=== PATIENT | male | born 1955 | race Caucasian/White ===

== ENCOUNTER 2016-09-17 23:50 | Inpatient (IN) | payer MEDICARE ==
[~2016-09-17] VITALS: Ht 167.6 cm; Wt 77.7 kg
[2016-09-17 23:51] VITALS: BP 178/93
--- OUTSIDE RECORDS SUMMARY | 2016-09-17 23:56 | External Medical Summary Rpt ---
Author Author [employer] Organization [employer] Address Unknown Phone Unavailable Purpose Continuity of Care Document - through 2016
--- OUTSIDE RECORDS SUMMARY | 2016-09-17 23:56 | External Medical Summary Rpt ---
Author Author , XENIA MICHAELS Address Unknown Phone [email or web address] Immunization Name Date Rout CVX Reac Dose Comm Prov Is Faci e tion ent ider Refu lity Give sed n Infl 09-2 Intr 150 0.5 Hist KHAF No RITE uenz 6-20 amus mL oric SOFIA AID0 a 16 cula al AYMA 3938 Quad r Info N Inj rmat ion - Sour ce Unsp ecif ied
--- OUTSIDE RECORDS SUMMARY | 2016-09-17 23:56 | External Medical Summary Rpt ---
Author Author , XENIA MICHAELS Address Unknown Phone [email or web address] Immunization Name Date Rout CVX Reac Dose Comm Prov Is Faci e tion ent ider Refu lity Give sed n Infl 09-2 Intr 150 0.5 Hist KHAF No RITE uenz 6-20 amus mL oric SOFIA AID0 a 16 cula al AYMA 3938 Quad r Info N Inj rmat ion - Sour ce Unsp ecif ied
--- OUTSIDE RECORDS SUMMARY | 2016-09-17 23:56 | External Medical Summary Rpt ---
Author Author XENIA Address Unknown Phone [email or web address] Purpose Continuity of Care Document - through 2016
--- OUTSIDE RECORDS SUMMARY | 2016-09-17 23:56 | External Medical Summary Rpt ---
Author Author XENIA Address Unknown Phone [email or web address] Purpose Continuity of Care Document - through 2016
[2016-09-18] VITALS (28 sets, daily range): BP systolic 121–162; BP diastolic 61–88
--- NOTE | 2016-09-18 00:12 | Emergency Room Report ---
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 N Clinical Suspician of Infection? N Mental Status: 1 - Regular (Normal Baseline) Sepsis Risk:Low Sepsis Risk Have you (or family members/close friends) recently traveled outside the [place]? N If Yes, where/when: Have you had exposure to infectious disease within the past month? N TB? Other? Specify: Source patient, RN notes reviewed, family, old records Exam Limitations no limitations Comment acute chest pain with rad to jaw with strong fh and htn and tob use -pt not relieved at home Cardiac Chest Pain Chest pain indicative of cardiac Yes Timing/Duration 1-3 hours, constant Severity/Quality moderate, pressure Location central Chest Pain Radiation jaw(s) Activities at Onset light activity Nitro Today/Relief no nitro taken today Aspirin Treatment Today 325 mg x 1, provided at home Beta jon treatment today no beta jon taken Cardiac risk factors Uncontrolled HTN, + family history Prior Workup/Intervention no prior cardiac workup Timing/Duration this evening Severity moderate History Medical History General CAD? No Angina: Yes NM: No Hypertension? Yes Hyperlipidemia? Yes CHF? No DVT? No PE? No COPD? No Asthma? No Anemia? No GERD? No Gastric ulcers? No GI Bleed? No Hernia? No Thyroid Problems? No Hypothyroidism? No CVA? No Seizures? No Diabetes? No Renal Insuffiency? No End Stage Renal Disease? No UTI? No Stones? No BPH? No GB Disease: No Nephritic Syndrome? No Asplenia? No Hepatitis? No Sickle Cell Disease? No Arthritis? No Migraines? No Cataracts? No Glaucoma? No MRSA? No HIV? No TB? No Anxiety? No Depression? No Cancer? No Site: N More? No Immunization Hx DT/Tetanus 1-4 Years Ago Surgical Hx Previous Surgery?Y BACK SURGERIES X 2 HAND SURGERY Social History Smoking Hx Smoker: Never Smoker Tobacco: Yes Type Cigarettes Alcohol Alcohol: No Drugs none Review of Systems All Other Systems Reviewed and Negative Constitutional denies fever Eyes denies drainage ENT denies: ear pain, epistaxis, throat pain. Respiratory denies cough, denies shortness of breath, denies wheezing Cardiovascular see HPI, chest pain, denies syncope Gastrointestinal denies abdominal pain, denies diarrhea, denies vomiting Genitourinary denies: dysuria, frequency, hesitancy, hematuria. Musculoskeletal denies back pain, denies joint pain, denies joint swelling, denies neck pain Skin denies rash Psychiatric/Neurological denies headache, denies seizure Physical Exam Vital Signs Vital Signs Date Time Temp Pulse Resp B/P Pulse O2 O2 Flow FiO2 Ox Delivery Rate 09/17 2351 98.3 99 16 178/93 97 - WBC >12,000 or <4,000 or 10% bands? 2 or more SIRS Criteria Met? B/P:178/ MAP:121 Creatinine >2.0? UA output<0.5ml/kg/hr for 2 hrs? Platelet count >100,000? Lactate >2.0mmol/1? INR >1.2 or PTT > than 60 sec? Evidence of Organ Dysfunction? Provider documented clinical suspician of infection? N Sepsis Criteria Count: 1 Sepsis Risk: Low Sepsis Risk General Appearance no apparent distress Eye Exam - bilateral eye PERRL, bilateral eye EOMI Ear, Nose, Throat normal ENT inspection Neck supple Respiratory Status No: respiratory distress. Lung Sounds bilateral: lungs clear. 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 Rhythm Sinus Tachycardia EKG ST elevation Departure Departure Time of Disposition 0004 Disposition Still a Patient Clinical Impression Primary Impression: STEMI (ST elevation myocardial infarction) Qualifiers: Involved coronary artery: unspecified coronary artery Qualified Code: I21.3 - ST elevation (STEMI) myocardial infarction of unspecified site Condition STABLE Referrals Rico Garcia MD discussed with dr stein and dr garcia ED Critical Care Critical Care Yes Time spent < 30 min Vital system(s) involved: stemi I was present at bedside for Coordinating pt's care, Interpreting EKGs/Strips , Reviewing old records, Discussing pt condition, For re-examinations Comments will go to microbiology lab assistant now at 0011
--- NOTE | 2016-09-18 00:12 | Emergency Room Report ---
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 N Clinical Suspician of Infection? N Mental Status: 1 - Regular (Normal Baseline) Sepsis Risk:Low Sepsis Risk Have you (or family members/close friends) recently traveled outside the [place]? N If Yes, where/when: Have you had exposure to infectious disease within the past month? N TB? Other? Specify: Source patient, RN notes reviewed, family, old records Exam Limitations no limitations Comment acute chest pain with rad to jaw with strong fh and htn and tob use -pt not relieved at home Cardiac Chest Pain Chest pain indicative of cardiac Yes Timing/Duration 1-3 hours, constant Severity/Quality moderate, pressure Location central Chest Pain Radiation jaw(s) Activities at Onset light activity Nitro Today/Relief no nitro taken today Aspirin Treatment Today 325 mg x 1, provided at home Beta jon treatment today no beta jon taken Cardiac risk factors Uncontrolled HTN, + family history Prior Workup/Intervention no prior cardiac workup Timing/Duration this evening Severity moderate History Medical History General CAD? No Angina: Yes [place]: No Hypertension? Yes Hyperlipidemia? Yes CHF? No DVT? No PE? No COPD? No Asthma? No Anemia? No GERD? No Gastric ulcers? No GI Bleed? No Hernia? No Thyroid Problems? No Hypothyroidism? No CVA? No Seizures? No Diabetes? No Renal Insuffiency? No End Stage Renal Disease? No UTI? No Stones? No BPH? No GB Disease: No Nephritic Syndrome? No Asplenia? No Hepatitis? No Sickle Cell Disease? No Arthritis? No Migraines? No Cataracts? No Glaucoma? No MRSA? No HIV? No TB? No Anxiety? No Depression? No Cancer? No Site: N More? No Immunization Hx DT/Tetanus 1-4 Years Ago Surgical Hx Previous Surgery?Y BACK SURGERIES X 2 HAND SURGERY Social History Smoking Hx Smoker: Never Smoker Tobacco: Yes Type Cigarettes Alcohol Alcohol: No Drugs none Review of Systems All Other Systems Reviewed and Negative Constitutional denies fever Eyes denies drainage ENT denies: ear pain, epistaxis, throat pain. Respiratory denies cough, denies shortness of breath, denies wheezing Cardiovascular see HPI, chest pain, denies syncope Gastrointestinal denies abdominal pain, denies diarrhea, denies vomiting Genitourinary denies: dysuria, frequency, hesitancy, hematuria. Musculoskeletal denies back pain, denies joint pain, denies joint swelling, denies neck pain Skin denies rash Psychiatric/Neurological denies headache, denies seizure Physical Exam Vital Signs Vital Signs Date Time Temp Pulse Resp B/P Pulse O2 O2 Flow FiO2 Ox Delivery Rate 09/17 2351 98.3 99 16 178/93 97 - WBC >12,000 or <4,000 or 10% bands? 2 or more SIRS Criteria Met? B/P:178/ MAP:121 Creatinine >2.0? UA output<0.5ml/kg/hr for 2 hrs? Platelet count >100,000? Lactate >2.0mmol/1? INR >1.2 or PTT > than 60 sec? Evidence of Organ Dysfunction? Provider documented clinical suspician of infection? N Sepsis Criteria Count: 1 Sepsis Risk: Low Sepsis Risk General Appearance no apparent distress Eye Exam - bilateral eye PERRL, bilateral eye EOMI Ear, Nose, Throat normal ENT inspection Neck supple Respiratory Status No: respiratory distress. Lung Sounds bilateral: lungs clear. 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 Rhythm Sinus Tachycardia EKG ST elevation Departure Departure Time of Disposition 0004 Disposition Still a Patient Clinical Impression Primary Impression: STEMI (ST elevation myocardial infarction) Qualifiers: Involved coronary artery: unspecified coronary artery Qualified Code: I21.3 - ST elevation (STEMI) myocardial infarction of unspecified site Condition STABLE Referrals Rico Garcia MD discussed with dr stein and dr garcia ED Critical Care Critical Care Yes Time spent < 30 min Vital system(s) involved: stemi I was present at bedside for Coordinating pt's care, Interpreting EKGs/Strips , Reviewing old records, Discussing pt condition, For re-examinations Comments will go to lab rn now at 0011
--- OUTSIDE RECORDS SUMMARY | 2016-09-18 00:14 | External Medical Summary Rpt ---
Author Author , XENIA MICHAELS Address Unknown Phone [email or web address] Immunization Name Date Rout CVX Reac Dose Comm Prov Is Faci e tion ent ider Refu lity Give sed n Infl 09-2 Intr 150 0.5 Hist KHAF No RITE uenz 6-20 amus mL oric SOFIA AID0 a 16 cula al AYMA 3938 Quad r Info N Inj rmat ion - Sour ce Unsp ecif ied
--- OUTSIDE RECORDS SUMMARY | 2016-09-18 00:14 | External Medical Summary Rpt ---
Author Author , XENIA MICHAELS Address Unknown Phone [email or web address] Immunization Name Date Rout CVX Reac Dose Comm Prov Is Faci e tion ent ider Refu lity Give sed n Infl 09-2 Intr 150 0.5 Hist KHAF No RITE uenz 6-20 amus mL oric SOFIA AID0 a 16 cula al AYMA 3938 Quad r Info N Inj rmat ion - Sour ce Unsp ecif ied
--- NOTE | 2016-09-18 01:21 | RADIOLOGY REPORT PS360 ---
CARDIAC CATHETERIZATION DATE OF CATHETERIZATION:09/18/2016 12:45 AM PROCEDURES: 1. Left heart catheterization 2. Left ventriculogram 3. Selective coronary angiogram 4. Drug-eluting stent deployment to the ostial left main artery INDICATION FOR TEST: 1. Acute ST elevation myocardial infarction 2. Coronary artery disease Informed consent was obtained prior to the procedure. COMPLICATIONS: None 60-year-old gentleman presented to the emergency department with severe diaphoresis and severe chest pain. EKG revealed diffuse ST depression with ST elevation in aVR in the V1. Patient had a toxic appearance and was diaphoretic with active chest pain. Patient was immediately taken to the Enrollment Eligibility Representative and prepped for emergent angiography. Patient continued to complain of severe chest pain burning shortness of breath and episodes of near emesis. In the Enrollment Eligibility Representative he was heavily sedated due to his severe chest pain, anxiety and extremities. Angiography demonstrated critical ostial left main disease with a chronically occluded dominant right coronary artery being entirely supplied by the left coronary system. Given patient is actively having chest pain with profound ST segment depression which persisted on his EKG and was decided to percutaneously intervene. We are able to awaken patient and not for him to take 60 mg of Effient and heparin was administered into the arterial sheath. ESTIMATED BLOOD LOSS: Less than 10 ml. TECHNIQUE: One percent lidocaine used to anesthetize the right anterior aspect of the wrist. The right radial artery was accessed via the Seldinger technique. A 6 Green[place]ic sheath was placed in the right radial artery. 2.5 mg of verapamil, 800 mcg of nitroglycerin and 7000 units of heparin was administered into the arterial sheath. An [employer] left guide catheter was placed in the ostial left main artery and the blood pressure immediately dampened to 40 mm systolic. I was able to quickly inject 1 quick angiogram which demonstrated a critical ostial stenosis. The guide catheter was pulled out and placed into the ascending aorta. With the ACT greater than 400 and patient artery given 60 mg of Effient a BMW wire was placed into the circumflex artery while the guide catheter was still in the left coronary cusp. A 4 mm x 8 mm resolute [place] stent was advanced into the distal aspect of the guide catheter but still within the guide catheter. The guide catheter was then inserted into the left main artery and the stent was advanced ostially. The guide catheter was then disengaged from the left main artery and the stent was deployed in a perfect location at 20 hafsa reducing the critical stenosis to 0%. At this point I was able to reengage the left main artery with the guide catheter without any additional dampening and then perform complete diagnostic angiography. At the end of the procedure the ACT was 290 seconds with YOAV-3 flow down the LAD left main and circumflex system. The apparatus was removed the sheath was removed good hemostasis was achieved using TR banding patient transferred the postop holding area in stable condition ANGIOGRAPHIC RESULTS: 1. The left main artery has a critical ostial 80-90% stenosis. After the stenting the left main artery was normal ostially and proximally with a small distal 20% stenosis 2. The left anterior descending artery has an ostial 50% stenosis with a proximal 40% and 70% concentric stenosis followed by a long mid vessel 60-70% concentric stenosis. Distally the LAD has a 50% stenosis. This is a large vessel giving rise to multiple very large septal perforators which have a dense collateral network to the distal right coronary artery 3. The circumflex artery is probably a codominant vessel and has proximal 40-50% and diffuse mid vessel 40% stenoses 4. The right coronary artery is probably codominant vessel and severely stenosed in the proximal segment of 70% and then subtotally occluded after the RV marginal 5. The REDMOND ventriculogram reveals normal ejection fraction 65% 6. The left ventricular end-diastolic pressure 15 mmHg IMPRESSION: 1. Critical coronary artery disease as described above 2. Successful stenting of the ostial left main artery critical disease reduced to 0% with 1 drug-eluting stent 3. Persistent moderate to severe proximal mid LAD disease as described above 4. Chronically occluded probably codominant right coronary artery 5. Normal ejection fraction 6. Normal left ventricular end-diastolic pressure PLAN: 1. Effient and aspirin 2. LDL less than 55 3. Complete tobacco cessation 4. Patient requires high dose beta blockers in standard therapy for ischemic heart disease 5. Cardiac rehabilitation 6. Patient has persistent ostial proximal and mid LAD disease which would probably benefit from the BOOKER graft. I will show these films to the CT surgeon and will approach additional revascularization and a team approach while consulting with a cardiothoracic surgeon
[2016-09-18] MEDS ORDERED: ASPIRIN 81MG TA81 MG PO (02:05)
--- NOTE | 2016-09-18 07:51 | HISTORY AND PHYSICAL REPORT ---
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 In the ER EKGs indicated STEMI pattern. Taken to catheter lab. Stented successfully, transferred to step down intensive. Ivette has no complaints, no pain. Feels much better Past medical history: Family HX Family Hx Insignificant No Diabetes Yes CAD Yes Hypertension Yes Hyperlipidemia Yes Cancer No TB No Comment Patient's brother had myocardial infarction at age 56, patient's son had a myocardial infarction at age 37 Immunization HX DT/Tetanus 1-4 Years Ago Pneumonia Never Had TB Test in last year No General CAD? No Angina: Yes NM: Yes Hypertension? Yes Hyperlipidemia? Yes CHF? No DVT? No PE? No COPD? No Asthma? No Anemia? No GERD? No Gastric ulcers? No GI Bleed? No Hernia? No Thyroid Problems? No Hypothyroidism? No CVA? No Seizures? No Diabetes? No Renal Insuffiency? No UTI? No Stones? No BPH? No GB Disease: No Nephritic Syndrome? No Asplenia? No Hepatitis? No Sickle Cell Disease? No Arthritis? No Migraines? No Cataracts? No Glaucoma? No MRSA? No HIV? No TB? No Anxiety? No Depression? No Cancer? No Site: N More? No Past Surgical HX Previous Surgery?Y BACK SURGERIES X 2 HAND SURGERY STENTS Current home meds: Reported Medications ASPIRIN (Aspirin) 81 MG PO DAILY Social Hx: Smoking HX Tobacco Yes Type Cigarettes Packs/day 1 1/2 - 2 PACKS Are you/the child exposed to second-hand smoke: Yes Alcohol Alcohol: Yes How much do you drink 1-2 Drinks Per Day For how long Longer Than 5 Years When was your last drink 24-48 Hours Ago Hx of Drug Use Drug Use? No Patien't marital status is Patient's support system is excellent Review of systems: Constitutional malaise, weakness. Respiratory shortness of breath, SOB with excertion, SOB at rest. Cardiovascular see HPI Gastrointestinal/Abdominal No no symptoms reported Genitourinary No: no symptoms reported. Musculoskeletal back pain, neck pain. Neurological No: see HPI. Exam: Lab data for last 24 hours: Laboratory Tests 09/18/16 0724: Triglycerides 156, Cholesterol 176, LDL Cholesterol 109.8, VLDL Cholesterol 31.2 , HDL Cholesterol 35.0 L 09/18/16 0041: POC Activ Clotting Time 290 *H Admission vital signs: 1ST Vital Signs Result Date Time Pulse Ox 97 09/17 2350 B/P 178/93 09/17 2350 Temp 98.3 09/17 2350 Pulse 99 09/17 2350 Resp 16 09/17 2350 O2 Delivery ROOM AIR 09/18 014 Exam General appearance: normal appearance, alert, awake Eyes: normal exam, anicteric Neck: normal inspection, non-tender, no carotid bruit, no JVD Cardiovascular: normal exam Respiratory: normal exam, clear to auscultation ABD: normal exam, non-distended, normal bowel sounds Genitourinary: normal voiding & quantity Musculoskeletal: normal exam Neuro: normal exam, alert, no deficit Plan: Problem List 1. STEMI (ST elevation myocardial infarction) 2. Tobacco use disorder Plan: Catheter lab reports reviewed. We'll start beta jon cautiously. High potency statin. Continue dual antiplatelet agents. Probable referral for bypass procedure. Discussed this with patient. Nicotine patch as needed for tobacco use issues. Strongly need smoking cessation immediately. Please note one hour critical care time. at 0751
--- NOTE | 2016-09-18 09:20 | PHARMACY CLINIC NOTE ---
Patient Demographics Patient Demographics Admission date: 09/18/16 Date: 09/18/16 Time: 918 Allergies Coded Allergies: No Known Allergies (09/18/16) HEIGHT- FT: 5 IN: 6.00 K.364 VTE General Information Disclaimer The following section includes nursing documentation that has been pulled in for pharmacy review. Patient's VTE score: 1 Patient's VTE Risk: VERY LOW RISK Clinical trial participant? No VTE prophylaxis [id number] [id number] VTE prophylaxis ordered? Yes Type of prophylaxis/treatment: CHANCE at 0919
[2016-09-19] VITALS (9 sets, daily range): BP systolic 124–138; BP diastolic 64–74
[2016-09-19] MEDS ORDERED: ASPIRIN 81MG TA81 MG PO (07:23)
--- NOTE | 2016-09-19 07:23 | ACUTE CARE PROGRESS NOTE (QUA) ---
Progress Notes Subjective Date 09/19/16 Time 0721 Note Patient had a good night. Slept well. No complaints of chest pain. Heart rate regular in the 60s. Abdomen soft and nontender. Lungs are clear. No edema, good perfusion. Objective Findings Last VS-Temp:98.4 B/P:138/67 Pulse:52 Resp:18 SaO2:93 ROOM AIR Last weight lbs:171 oz:5 K.706 Method:Bed Scales Assessment/Plan Problem List 1. STEMI (ST elevation myocardial infarction) Qualifiers: Involved coronary artery: unspecified coronary artery Qualified Code: I21.3 - ST elevation (STEMI) myocardial infarction of unspecified site 2. Tobacco use disorder Patient condition Improving Plan: initiate discharge plan This inpt stay is expected to cross 2 MNs from start of care Yes Comments: Please note 30 minutes critical care time at 0722
[2016-09-19] MEDS ORDERED: LOPRESSOR 50 MG50 MG PO (07:24)
[2016-09-19] MEDS ORDERED: LIPITOR40 M1 PO (07:24)
[2016-09-19] MEDS ORDERED: EFFIENT10 M2 PO (07:24)
--- NOTE | 2016-09-19 07:27 | DISCHARGE SUMMARY STANDARD ---
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 In the ER EKGs indicated STEMI pattern. Taken to catheter lab. Stented successfully, transferred to step down intensive. Davidn has no complaints, no pain. Feels much better Hospital Course Hospital Course: Patient was administered down. Watch carefully. Beta blockers were initially very carefully in the intensive care unit setting given his anterior wall dysfunction. He tolerated this well and was not significantly bradycardic. This morning he is without any symptoms of cardiovascular dysfunction. Tolerated beta blockers well. No edema. No complaints. He will be discharged home, with short-term cardiology followup, to set up an evaluation for bypass procedure. We discharged him on aspirin, anticoagulation/platelet therapy, high-dose atorvastatin and beta blockers. Discharge diagnoses Problem List 1. STEMI (ST elevation myocardial infarction) 2. Tobacco use disorder Medications Medications: Discharge meds are as noted. Follow up Follow up in office in: 2 DAYS with: Rico Pedraza MD at 8282
--- NOTE | 2016-09-19 08:01 | CONSULT NOTE ---
Standard Demographics Patient Demo Date of Consultation: 09/17/16 Referring Provider: Lele Marsh MD Reason for Consultation: STEMI PRIMARY DIAGNOSIS: STEMI Problem list Problem list: 1. Tobacco use 2. Strong FH of ASHD in parents and siblings 3. HTN History of present illness: History of present illness: 60-year-old white male with strong and impressive family history of coronary disease and myocardial infarction, and also a heavy smoker, who came to the emergency department in the [employer] hours this morning with a chief complaint of chest pain, neck pain, nausea, diaphoresis and a feeling of impending doom and anxiety. In the ER EKGs indicated STEMI pattern. Taken to catheter lab. The above per Dr. Marsh. Patient relates a two-week or more history of exertional neck and jaw discomfort that resolves with rest. As noted above patient came in with unrelenting chest pain, electrocardiogram changes indicative of a ST myocardial infarction pattern was taken urgently to the cardiac minilab operator. He ended undergo coronary stenting without complications. He's had no further chest pain during his stay. Plan is to be discharged today. Past Medical History: General: Hypertension Yes CVA No Seizures No TB No COPD No Asthma No Diabetes No Angina Yes VT Yes Hyperlipidemia Yes Cancer No MRSA No GB Disease No Past Surgical HX: Previous Surgery?Y BACK SURGERIES X 2 HAND SURGERY STENTS Allergies Coded Allergies: No Known Allergies (09/18/16) Home medications: Discontinued Reported Medications ASPIRIN (Aspirin) 81 MG PO DAILY Current Medications: Current Medications Atorvastatin Calcium 80 MG QHS PO Nicotine 0 .STK-MED ONE TD (DC) Aspirin 81 MG DAILY PO Metoprolol Tartrate 50 MG BID PO Prasugrel 10 MG DAILY PO Fentanyl Citrate 25 MCG PRN PRN IV (DC) Fentanyl Citrate 50 MCG PRN PRN IV (DC) Flumazenil 0.2 MG PRN PRN IV (DC) Heparin Sodium (Beef Lung) 5,000 UNITS PRN PRN IV (DC) Heparin Sodium (Beef Lung) 5,000 UNITS PRN PRN IV (DC) Heparin Sodium/Sodium Chloride 3,000 UNITS PRN PRN IV (DC) Heparin Sodium/Sodium Chloride 3,000 UNITS PRN PRN IV (DC) Midazolam HCl 1 MG PRN PRN IV (DC) Midazolam HCl 1 MG PRN PRN IV (DC) Naloxone HCl 0.4 MG [id number] PRN IV (DC) Nitroglycerin 800 MCG PRN PRN IV (DC) Nitroglycerin 800 MCG PRN PRN IV (DC) Verapamil HCl 5 MG PRN PRN IV (DC) Verapamil HCl 5 MG PRN PRN IV (DC) Immunization HX DT/Tetanus 1-4 Years Pneumonia Never Had TB Test in last year No Family history Family HX Family Hx Insignificant No Diabetes Yes CAD Yes Hypertension Yes Hyperlipidemia Yes Cancer No TB No Comment Patient's brother had myocardial infarction at age 56, patient's son had a myocardial infarction at age 37 Social Hx: Smoking HX Tobacco Yes Type Cigarettes Packs/day 1 1/2 - 2 PACKS Are you/the child exposed to second-hand smoke: Yes Alcohol Alcohol: Yes How much do you drink 1-2 Drinks Per Day For how long Longer Than 5 Years When was your last drink 24-48 Hours Ago Hx of Drug Use Drug Use? No Patien't marital status is Patient's support system is good Review of systems: Constitutional No: no symptoms reported. Respiratory SOB with excertion. Cardiovascular see HPI, chest pain Gastrointestinal/Abdominal No no symptoms reported Genitourinary No: no symptoms reported. Musculoskeletal back pain. Neurological No: no symptoms reported. Exam: Admission Vital Signs: 1ST Vital Signs Result Date Time Pulse Ox 97 09/17 2351 B/P 178/93 09/17 2351 Temp 98.3 09/17 2351 Pulse 99 09/17 2351 Resp 16 09/17 2351 O2 Delivery ROOM AIR 09/18 0146 Last Vital Signs: Vital Signs Result Date Time Pulse Ox 93 09/19 0703 B/P 138/67 09/19 0703 O2 Delivery ROOM AIR 09/19 0703 Pulse 52 09/19 0703 Resp 18 09/19 0703 Temp 98.4 09/19 0449 Exam General appearance: alert, awake, no acute distress Neck: no carotid bruit, no JVD Cardiovascular: regular rate & rhythm, no murmur Respiratory: clear to auscultation ABD: soft, no tenderness Extremities: moves all, no peripheral edema 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 ST elevation myocardial infarction. Status post LEFT main coronary artery stenting with residual moderate to severe left anterior descending disease. Patient has mild to moderate circumflex disease and occluded RIGHT coronary artery after RV marginal takeoff. Discussion will be undertaken with cardiothoracic surgeon regarding possible need for coronary bypass grafting. 2. Tobacco use with cessation strongly encouraged. 3. Dyslipidemia with LDL 109 and HDL 35. Statin therapy started. 4. Hypertension with beta jon therapy started Recommendations: Patient is post-stenting day 2 and stable. Agree with discharge home. On Milo to discuss consideration of coronary bypass grafting with CT surgeon and further discuss with patient at follow-up in one week. Strongly encouraged tobacco cessation. Encouraged medication compliance. at 0801
--- NOTE | 2016-09-19 08:01 | CONSULT NOTE ---
Standard Demographics Patient Demo Date of Consultation: 09/17/16 Referring Provider: Lele Marsh MD Reason for Consultation: STEMI PRIMARY DIAGNOSIS: STEMI Problem list Problem list: 1. Tobacco use 2. Strong FH of ASHD in parents and siblings 3. HTN History of present illness: History of present illness: 60-year-old white male with strong and impressive family history of coronary disease and myocardial infarction, and also a heavy smoker, who came to the emergency department in the [employer] drafter hours this morning with a chief complaint of chest pain, neck pain, nausea, diaphoresis and a feeling of impending doom and anxiety. In the ER EKGs indicated STEMI pattern. Taken to catheter lab. The above per Dr. Marsh. Patient relates a two-week or more history of exertional neck and jaw discomfort that resolves with rest. As noted above patient came in with unrelenting chest pain, electrocardiogram changes indicative of a ST myocardial infarction pattern was taken urgently to the cardiac lab tester. He ended undergo coronary stenting without complications. He's had no further chest pain during his stay. Plan is to be discharged today. Past Medical History: General: Hypertension Yes CVA No Seizures No TB No COPD No Asthma No Diabetes No Angina Yes IA Yes Hyperlipidemia Yes Cancer No MRSA No GB Disease No Past Surgical HX: Previous Surgery?Y BACK SURGERIES X 2 HAND SURGERY STENTS Allergies Coded Allergies: No Known Allergies (09/18/16) Home medications: Discontinued Reported Medications ASPIRIN (Aspirin) 81 MG PO DAILY Current Medications: Current Medications Atorvastatin Calcium 80 MG QHS PO Nicotine 0 .STK-MED ONE TD (DC) Aspirin 81 MG DAILY PO Metoprolol Tartrate 50 MG BID PO Prasugrel 10 MG DAILY PO Fentanyl Citrate 25 MCG PRN PRN IV (DC) Fentanyl Citrate 50 MCG PRN PRN IV (DC) Flumazenil 0.2 MG PRN PRN IV (DC) Heparin Sodium (Beef Lung) 5,000 UNITS PRN PRN IV (DC) Heparin Sodium (Beef Lung) 5,000 UNITS PRN PRN IV (DC) Heparin Sodium/Sodium Chloride 3,000 UNITS PRN PRN IV (DC) Heparin Sodium/Sodium Chloride 3,000 UNITS PRN PRN IV (DC) Midazolam HCl 1 MG PRN PRN IV (DC) Midazolam HCl 1 MG PRN PRN IV (DC) Naloxone HCl 0.4 MG [id number] PRN IV (DC) Nitroglycerin 800 MCG PRN PRN IV (DC) Nitroglycerin 800 MCG PRN PRN IV (DC) Verapamil HCl 5 MG PRN PRN IV (DC) Verapamil HCl 5 MG PRN PRN IV (DC) Immunization HX DT/Tetanus 1-4 Years Pneumonia Never Had TB Test in last year No Family history Family HX Family Hx Insignificant No Diabetes Yes CAD Yes Hypertension Yes Hyperlipidemia Yes Cancer No TB No Comment Patient's brother had myocardial infarction at age 56, patient's son had a myocardial infarction at age 37 Social Hx: Smoking HX Tobacco Yes Type Cigarettes Packs/day 1 1/2 - 2 PACKS Are you/the child exposed to second-hand smoke: Yes Alcohol Alcohol: Yes How much do you drink 1-2 Drinks Per Day For how long Longer Than 5 Years When was your last drink 24-48 Hours Ago Hx of Drug Use Drug Use? No Patien't marital status is Patient's support system is good Review of systems: Constitutional No: no symptoms reported. Respiratory SOB with excertion. Cardiovascular see HPI, chest pain Gastrointestinal/Abdominal No no symptoms reported Genitourinary No: no symptoms reported. Musculoskeletal back pain. Neurological No: no symptoms reported. Exam: Admission Vital Signs: 1ST Vital Signs Result Date Time Pulse Ox 97 09/17 2351 B/P 178/93 09/17 2351 Temp 98.3 09/17 2351 Pulse 99 09/17 2351 Resp 16 09/17 2351 O2 Delivery ROOM AIR 09/18 0146 Last Vital Signs: Vital Signs Result Date Time Pulse Ox 93 09/19 0703 B/P 138/67 09/19 0703 O2 Delivery ROOM AIR 09/19 0703 Pulse 52 09/19 0703 Resp 18 09/19 0703 Temp 98.4 09/19 0449 Exam General appearance: alert, awake, no acute distress Neck: no carotid bruit, no JVD Cardiovascular: regular rate & rhythm, no murmur Respiratory: clear to auscultation ABD: soft, no tenderness Extremities: moves all, no peripheral edema 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 ST elevation myocardial infarction. Status post LEFT main coronary artery stenting with residual moderate to severe left anterior descending disease. Patient has mild to moderate circumflex disease and occluded RIGHT coronary artery after RV marginal takeoff. Discussion will be undertaken with cardiothoracic surgeon regarding possible need for coronary bypass grafting. 2. Tobacco use with cessation strongly encouraged. 3. Dyslipidemia with LDL 109 and HDL 35. Statin therapy started. 4. Hypertension with beta jon therapy started Recommendations: Patient is post-stenting day 2 and stable. Agree with discharge home. On [place] to discuss consideration of coronary bypass grafting with CT surgeon and further discuss with patient at follow-up in one week. Strongly encouraged tobacco cessation. Encouraged medication compliance. at 0801
== END 2016-09-19 10:35 | disposition home or self-care (01) | DRG 247 ==
LOC: ER 23:50 → 2ND 09-18 00:10 → ER 09-18 00:10 → 2ND 09-18 00:10
PROVIDERS: Internal Medicine
PROC: B2111ZZ Fluoroscopy of Multiple Coronary Arteries using Low Osmolar Contrast (ICD-10-PCS; principal; 2016-09-18)
PROC: B2151ZZ Fluoroscopy of Left Heart using Low Osmolar Contrast (ICD-10-PCS; principal; 2016-09-18)
PROC: 027034Z Dilation of Coronary Artery, One Artery with Drug-eluting Intraluminal Device, Percutaneous Approach (ICD-10-PCS; principal; 2016-09-18)
PROC: 4A023N7 Measurement of Cardiac Sampling and Pressure, Left Heart, Percutaneous Approach (ICD-10-PCS; principal; 2016-09-18)
DX: I21.3 ST elevation (STEMI) myocardial infarction of unspecified site (principal); I10 Essential (primary) hypertension; I25.118 Atherosclerotic heart disease of native coronary artery with other forms of angina pectoris; Z72.0 Tobacco use; Z82.49 Family history of ischemic heart disease and other diseases of the circulatory system
CPT/HCPCS: C1725; C1769; C1876; J1644; Q9967

== ENCOUNTER → 2016-10-06 | Outpatient (CLI) | payer MEDICARE ==
[~2016-10-06] MED LIST: ASPIRIN 81MG TA81 MG PO; EFFIENT10 M2 PO; LIPITOR40 M1 PO; LOPRESSOR 50 MG50 MG PO
--- NOTE | 2016-10-07 15:58 | RADIOLOGY REPORT PS360 ---
PROCEDURE: 2-D M-mode and color Doppler study INDICATIONS FOR THE TEST: Chest pain COPD Heart Murmur Tobacco SmokingX Palpitations Fatigue Syncope Edema HypertensionXDiabetes Mellitus Rheumatic Fever SOB POZO Obesity HyperlipidemiaX Family History HDX Additional History STEMI, STENT,CAD PATIENT INFORMATION HEIGHT: 65 WEIGHT:170 GENDER: Male B/P:138/67 2-D/M-MODE INTERPRETATION: 2-D MEASUREMENTS OBSERVED VALUES IN CMS Right Ventricular Dimension (RVDd) 1.6 Interventricular Septum (Thickness)(IVsd) .9 Left Ventricular Internal Dimensions(LVIDd) 5.3 Left Ventricular Posterior Wall (Thickness)(LVPWd) .7 Aortic Root 3.0 Aortic Cusp Separation 1.8 Left Atrial Dimensions (LAD) 3.1 2D 1. Left atrium is qualitatively mildly enlarged, left ventricle is normal size, there is borderline concentric left ventricular hypertrophy seen, visually estimated ejection fraction 50% with basal septum and inferobasal wall hypokinesis. 2. The right atrium and right ventricle are normal size and contractility. 3. The aortic valve is minimally thickened and fibrosed. 4. The mitral and tricuspid valve is structurally normal. 5. The pulmonic valve is poorly visualized. 6. No significant pericardial effusion noted. DOPPLER INTERROGATION: Doppler interrogation of the aortic mitral and tricuspid valvular presence of mild mitral and tricuspid regurgitation, tricuspid regurgitant jet velocity insufficient for calculation of the right ventricular systolic pressure, grade 1 diastolic dysfunction seen without tissue Doppler evidence of raised left atrial pressure. CONCLUSION: 1. Mildly enlarged left atrium, normal left ventricular size, borderline concentric left ventricular hypertrophy, visually estimated ejection fraction 50% with segmental wall motion abnormality described above, grade 1 diastolic dysfunction seen without tissue Doppler evidence of raised left atrial pressure. 3. Mild mitral and tricuspid regurgitation. 4. No significant pericardial effusion noted.
== END ==
LOC: RT 09-30 13:45
DX: I25.10 Atherosclerotic heart disease of native coronary artery without angina pectoris (principal); I10 Essential (primary) hypertension; E78.5 Hyperlipidemia, unspecified; I21.3 ST elevation (STEMI) myocardial infarction of unspecified site